=== PATIENT | male | born 1980 | race Caucasian/White ===

== ENCOUNTER 2020-07-07 14:44 | Inpatient (IN) | payer OTHER ==
[2020-07-07 14:55] VITALS: BMI 27.8
[2020-07-07] MEDS ORDERED: SODIUM CHLORIDE 1,000 ML IV STA (15:30)
[2020-07-07] MEDS ORDERED: ALBUTEROL SO4 HFA INHALER IH ONE ×2 (15:30→15:52)
[2020-07-07] MEDS ORDERED: ACETAMINOPHEN 1000 MG/100 ML VIAL (NON FORMULARY) IVPB ONE (15:30)
[2020-07-07] MEDS ORDERED: ACETAMINOPHEN INJECTION 100 ML IVPB ONE (15:53)
[2020-07-07 16:20] LABS: CHLORIDE 95 mmol/L (98-107); POTASSIUM 3.6 mmol/L (3.5-5.1); SODIUM 129 mmol/L (136-145)
[2020-07-07 16:23] LABS: BASO % 0.6 % (0-2.0); HEMATOCRIT 43.8 % (35.4-49); LYMPH % 22.7 % (8-40); MCH 29.8 pg (25.7-33.7); MCHC 34.2 g/dl (32.0-35.9); MEAN CELL VOLUME 87.2 fl (80-96); MEAN PLT VOLUME 8.7 fl (7.5-11.1); MONO % 9.8 % (3.8-10.2); NEUT % 66.9 % (42.8-82.8); PLATELET COUNT 183 K/MM3 (134-434); RBC 5.02 M/mm3 (4.00-5.60); RDW 12.4 % (11.9-15.9); WHITE BLOOD COUNT 3.3 K/mm3 (4.0-10.0)
[2020-07-07 16:24] LABS: ALBUMIN 3.5 g/dl (3.4-5.0); ANION GAP 7 MMOL/L (8-16); BLOOD UREA NITROGEN 8.1 mg/dL (7-18); CO2 27 mmol/L (21-32); GLUCOSE,RANDOM 115 mg/dL (74-106)
[2020-07-07 16:27] LABS: CREATININE 0.9 mg/dL (0.55-1.3); SGOT/AST 37 U/L (15-37); SGPT/ALT 32 U/L (13-61)
[2020-07-07 16:28] LABS: BILIRUBIN,TOTAL 0.4 mg/dL (0.2-1); TOT PROT 7.2 g/dl (6.4-8.2)
[2020-07-07 16:29] LABS: ALK PHOS 46 U/L (45-117)
[2020-07-07 16:30] LABS: LDH 426 U/L (87-246)
[2020-07-07 16:37] LABS: INR 1.17 (0.83-1.09); PROTHROMBIN TIME (PATIENT) 14.3 SEC (9.7-13.0)
[2020-07-07] MEDS ORDERED: DEXAMETHASONE SOD PHOSPHATE 4 MG/1 ML VIAL IVPUSH ONE (17:01)
[2020-07-07] MEDS ORDERED: DEXAMETHASONE SOD PHOSPHATE 10 MG/1 ML VIAL ONE (17:07)
[2020-07-07] MEDS ORDERED: AZITHROMYCIN IVPB 500 MG in DEXTROSE 5%-WATER - 250 ML IVPB ONE (19:22)
[2020-07-07] MEDS ORDERED: CEFTRIAXONE 1,000 MG in DEXTROSE 5%-WATER - 50 ML IVPB ONE (19:22)
[2020-07-07] MEDS ORDERED: CEFTRIAXONE 1 GM/50 ML BAG ONE (19:26)
[2020-07-07] MEDS ORDERED: AZITHROMYCIN IVPB 500 MG/250 ML BAG IVPB ONE (19:26)
[2020-07-08] MEDS ORDERED: PT OWN MED DRAWER 7, Y5N ONE (09:17)
[2020-07-08] MEDS: ZINC SULFATE 220 MG CAPSULE (FP) PO SCH (09:23)
[2020-07-08] MEDS: DEXAMETHASONE SOD PHOSPHATE 4 MG/1 ML VIAL IVPUSH SCH (09:23)
[2020-07-08] MEDS: ASCORBIC ACID 500 MG TABLET (FP) PO SCH (09:23)
[2020-07-08] MEDS: ENOXAPARIN NA (PORCINE) 40 MG/0.4 ML DISP.SYRIN SQ SCH (09:23)
[2020-07-08] MEDS: FAMOTIDINE 20 MG TABLET PO SCH (09:24)
[2020-07-08 09:57] LABS: BASO % 0.2 % (0-2.0); HEMATOCRIT 42.8 % (35.4-49); HEMOGLOBIN 14.9 GM/dL (11.7-16.9); LYMPH % 16.2 % (8-40); MCH 30.2 pg (25.7-33.7); MCHC 34.7 g/dl (32.0-35.9); MEAN PLT VOLUME 8.4 fl (7.5-11.1); MONO % 9.5 % (3.8-10.2); NEUT % 74.1 % (42.8-82.8); PLATELET COUNT 222 K/MM3 (134-434); RBC 4.92 M/mm3 (4.00-5.60); RDW 12.3 % (11.9-15.9); WHITE BLOOD COUNT 4.2 K/mm3 (4.0-10.0)
[2020-07-08] MEDS ORDERED: CEFTRIAXONE 1,000 GM in DEXTROSE 5%-WATER - 50 ML IVPB SCH (10:00)
[2020-07-08 10:32] LABS: POTASSIUM 3.9 mmol/L (3.5-5.1)
[2020-07-08 10:51] LABS: ALBUMIN 3.4 g/dl (3.4-5.0); BLOOD UREA NITROGEN 8.1 mg/dL (7-18); CALCIUM 8.2 mg/dL (8.5-10.1); MAGNESIUM 2.3 mg/dL (1.8-2.4)
[2020-07-08 10:55] LABS: CREATININE 0.9 mg/dL (0.55-1.3); PHOSPHOROUS 2.9 mg/dL (2.5-4.9)
[2020-07-08 10:56] LABS: BILIRUBIN,TOTAL 0.6 mg/dL (0.2-1); TOT PROT 7.3 g/dl (6.4-8.2)
[2020-07-08] MEDS: CHOLECALCIFEROL (VIT D3) 400 UNIT (10 MCG) TABLET PO SCH (11:41)
[2020-07-08] MEDS: AZITHROMYCIN IVPB 250 MG in DEXTROSE 5%-WATER - 250 ML IVPB SCH (11:41)
[2020-07-08] MEDS: CEFTRIAXONE 1 GM in DEXTROSE 5%-WATER - 50 ML IVPB SCH (12:00)
[2020-07-08] MEDS ORDERED: cefTRIAXone SODIUM 1 GM VIAL ONE (12:29)
[2020-07-08] MEDS ORDERED: DEXTROSE 5%-WATER - 50 ML IVPB ONE (12:29)
[2020-07-08] MEDS ORDERED: REMDESIVIR 200 MG in SODIUM CHLORIDE 210 ML IVPB ONE (15:05)
[2020-07-09] MEDS: ACETAMINOPHEN 325 MG TABLET (FP) PO PRN ×2 (00:33→10:09)
[2020-07-09] MEDS ORDERED: guaiFENesin 200 MG/10 ML 10 ML UNIT-DOSE CUPS PO ONE (01:20)
[2020-07-09] MEDS ORDERED: MELATONIN 5 MG TABLETS PO ONE (01:20)
[2020-07-09] MEDS ORDERED: PT OWN MED DRAWER 7, Y5N ONE (09:55)
[2020-07-09] MEDS ORDERED: cefTRIAXone SODIUM 1 GM VIAL ONE (09:55)
[2020-07-09] MEDS ORDERED: DEXTROSE 5%-WATER - 50 ML IVPB ONE (09:55)
[2020-07-09] MEDS: CEFTRIAXONE 1 GM in DEXTROSE 5%-WATER - 50 ML IVPB SCH (09:59)
[2020-07-09] MEDS: AZITHROMYCIN IVPB 250 MG in DEXTROSE 5%-WATER - 250 ML IVPB SCH (09:59)
[2020-07-09] MEDS: ZINC SULFATE 220 MG CAPSULE (FP) PO SCH (10:00)
[2020-07-09] MEDS: ASCORBIC ACID 500 MG TABLET (FP) PO SCH (10:00)
[2020-07-09] MEDS: FAMOTIDINE 20 MG TABLET PO SCH (10:00)
[2020-07-09] MEDS: ENOXAPARIN NA (PORCINE) 40 MG/0.4 ML DISP.SYRIN SQ SCH (10:00)
[2020-07-09] MEDS: CHOLECALCIFEROL (VIT D3) 400 UNIT (10 MCG) TABLET PO SCH (10:00)
[2020-07-09] MEDS: DEXAMETHASONE SOD PHOSPHATE 4 MG/1 ML VIAL IVPUSH SCH (10:01)
[2020-07-09 10:07] LABS: BASO % 0.2 % (0-2.0); HEMATOCRIT 41.2 % (35.4-49); HEMOGLOBIN 14.2 GM/dL (11.7-16.9); LYMPH % 15.6 % (8-40); MCH 30.2 pg (25.7-33.7); MCHC 34.3 g/dl (32.0-35.9); MEAN PLT VOLUME 8.4 fl (7.5-11.1); MONO % 6.5 % (3.8-10.2); NEUT % 77.7 % (42.8-82.8); PLATELET COUNT 248 K/MM3 (134-434); RBC 4.68 M/mm3 (4.00-5.60); RDW 12.7 % (11.9-15.9); WHITE BLOOD COUNT 6.3 K/mm3 (4.0-10.0)
[2020-07-09 10:30] LABS: ALBUMIN 3.1 g/dl (3.4-5.0); CALCIUM 8.1 mg/dL (8.5-10.1)
[2020-07-09 10:31] LABS: BLOOD UREA NITROGEN 10.8 mg/dL (7-18); MAGNESIUM 2.3 mg/dL (1.8-2.4)
[2020-07-09 10:34] LABS: PHOSPHOROUS 3.4 mg/dL (2.5-4.9)
[2020-07-09 10:35] LABS: BILIRUBIN,TOTAL 0.9 mg/dL (0.2-1); TOT PROT 6.9 g/dl (6.4-8.2)
[2020-07-09] MEDS: REMDESIVIR 100 MG in SODIUM CHLORIDE 230 ML IVPB SCH (16:24)
[2020-07-10] MEDS: ACETAMINOPHEN 325 MG TABLET (FP) PO PRN (04:01)
[2020-07-10] MEDS ORDERED: PT OWN MED DRAWER 7, Y5N ONE ×2 (09:13→09:55)
[2020-07-10] MEDS: DEXAMETHASONE SOD PHOSPHATE 4 MG/1 ML VIAL IVPUSH SCH (09:50)
[2020-07-10] MEDS: ZINC SULFATE 220 MG CAPSULE (FP) PO SCH (09:50)
[2020-07-10] MEDS: ASCORBIC ACID 500 MG TABLET (FP) PO SCH (09:50)
[2020-07-10] MEDS: ENOXAPARIN NA (PORCINE) 40 MG/0.4 ML DISP.SYRIN SQ SCH (09:50)
[2020-07-10] MEDS: FAMOTIDINE 20 MG TABLET PO SCH (09:51)
[2020-07-10] MEDS: CHOLECALCIFEROL (VIT D3) 400 UNIT (10 MCG) TABLET PO SCH (09:57)
[2020-07-10 10:09] LABS: BASO % 0.1 % (0-2.0); HEMATOCRIT 40.4 % (35.4-49); HEMOGLOBIN 13.9 GM/dL (11.7-16.9); LYMPH % 11.4 % (8-40); MCH 29.9 pg (25.7-33.7); MCHC 34.4 g/dl (32.0-35.9); MEAN CELL VOLUME 87.1 fl (80-96); MEAN PLT VOLUME 7.9 fl (7.5-11.1); MONO % 6.8 % (3.8-10.2); NEUT % 81.7 % (42.8-82.8); PLATELET COUNT 292 K/MM3 (134-434); RBC 4.64 M/mm3 (4.00-5.60); WHITE BLOOD COUNT 6.4 K/mm3 (4.0-10.0)
[2020-07-10 10:24] LABS: POTASSIUM 3.7 mmol/L (3.5-5.1)
[2020-07-10 10:28] LABS: BLOOD UREA NITROGEN 12.2 mg/dL (7-18); MAGNESIUM 2.4 mg/dL (1.8-2.4)
[2020-07-10 10:31] LABS: CREATININE 0.7 mg/dL (0.55-1.3)
[2020-07-10 10:32] LABS: BILIRUBIN,TOTAL 0.5 mg/dL (0.2-1)
[2020-07-10 10:33] LABS: TOT PROT 6.6 g/dl (6.4-8.2)
[2020-07-10] MEDS: REMDESIVIR 100 MG in SODIUM CHLORIDE 230 ML IVPB SCH (15:34)
[2020-07-11 08:23] LABS: BASO % 0.1 % (0-2.0); HEMATOCRIT 41.1 % (35.4-49); LYMPH % 12.6 % (8-40); MCHC 34.1 g/dl (32.0-35.9); MEAN CELL VOLUME 87.8 fl (80-96); MEAN PLT VOLUME 8.6 fl (7.5-11.1); NEUT % 74.3 % (42.8-82.8); PLATELET COUNT 333 K/MM3 (134-434); RBC 4.68 M/mm3 (4.00-5.60); RDW 12.7 % (11.9-15.9); WHITE BLOOD COUNT 6.6 K/mm3 (4.0-10.0)
[2020-07-11 08:26] LABS: POTASSIUM 4.2 mmol/L (3.5-5.1)
[2020-07-11 08:37] LABS: BLOOD UREA NITROGEN 12.1 mg/dL (7-18); CALCIUM 8.2 mg/dL (8.5-10.1); MAGNESIUM 2.4 mg/dL (1.8-2.4)
[2020-07-11 08:39] LABS: CREATININE 0.7 mg/dL (0.55-1.3)
[2020-07-11 08:40] LABS: PHOSPHOROUS 3.4 mg/dL (2.5-4.9)
[2020-07-11 08:41] LABS: BILIRUBIN,TOTAL 0.6 mg/dL (0.2-1); TOT PROT 6.7 g/dl (6.4-8.2)
[2020-07-11] MEDS: ASCORBIC ACID 500 MG TABLET (FP) PO SCH (10:53)
[2020-07-11] MEDS: ENOXAPARIN NA (PORCINE) 40 MG/0.4 ML DISP.SYRIN SQ SCH (10:53)
[2020-07-11] MEDS: ZINC SULFATE 220 MG CAPSULE (FP) PO SCH (10:53)
[2020-07-11] MEDS: FAMOTIDINE 20 MG TABLET PO SCH (10:53)
[2020-07-11] MEDS: DEXAMETHASONE SOD PHOSPHATE 4 MG/1 ML VIAL IVPUSH SCH (10:53)
[2020-07-11] MEDS: CHOLECALCIFEROL (VIT D3) 400 UNIT (10 MCG) TABLET PO SCH (10:54)
[2020-07-11] MEDS ORDERED: TOCILIZUMAB (ACTEMRA) 200 MG/10 ML VIAL IVPB ONE (11:15)
[2020-07-11] MEDS ORDERED: SODIUM CHLORIDE IVPB ONE (13:00)
[2020-07-11] MEDS ORDERED: TOCILIZUMAB IVPB ONE (13:00)
[2020-07-11] MEDS ORDERED: PT OWN MED DRAWER 7, Y5N ONE (15:31)
[2020-07-11] MEDS: REMDESIVIR 100 MG in SODIUM CHLORIDE 230 ML IVPB SCH (17:12)
[2020-07-12] MEDS ORDERED: ACETAMINOPHEN 325 MG TABLET (FP) PO PRN (08:18)
[2020-07-12 08:24] LABS: BASO % 0.1 % (0-2.0); EOS % 0.2 % (0-4.5); HEMATOCRIT 42.3 % (35.4-49); HEMOGLOBIN 14.3 GM/dL (11.7-16.9); LYMPH % 18.4 % (8-40); MCH 29.7 pg (25.7-33.7); MCHC 33.7 g/dl (32.0-35.9); MEAN CELL VOLUME 88.2 fl (80-96); MEAN PLT VOLUME 8.4 fl (7.5-11.1); MONO % 19.2 % (3.8-10.2); NEUT % 62.1 % (42.8-82.8); PLATELET COUNT 424 K/MM3 (134-434); WHITE BLOOD COUNT 4.2 K/mm3 (4.0-10.0)
[2020-07-12 08:43] LABS: POTASSIUM 4.4 mmol/L (3.5-5.1)
[2020-07-12 08:45] LABS: CALCIUM 7.9 mg/dL (8.5-10.1)
[2020-07-12 08:46] LABS: ALBUMIN 2.8 g/dl (3.4-5.0); BLOOD UREA NITROGEN 13.6 mg/dL (7-18)
[2020-07-12 08:49] LABS: CREATININE 0.7 mg/dL (0.55-1.3)
[2020-07-12 08:50] LABS: BILIRUBIN,TOTAL 0.7 mg/dL (0.2-1); TOT PROT 6.6 g/dl (6.4-8.2)
[2020-07-12] MEDS: ENOXAPARIN NA (PORCINE) 40 MG/0.4 ML DISP.SYRIN SQ SCH (10:42)
[2020-07-12] MEDS: ZINC SULFATE 220 MG CAPSULE (FP) PO SCH (10:43)
[2020-07-12] MEDS: ASCORBIC ACID 500 MG TABLET (FP) PO SCH ×2 (10:43→21:26)
[2020-07-12] MEDS: FAMOTIDINE 20 MG TABLET PO SCH (10:43)
[2020-07-12] MEDS: DEXAMETHASONE SOD PHOSPHATE 4 MG/1 ML VIAL IVPUSH SCH (10:43)
[2020-07-12] MEDS: CHOLECALCIFEROL (VIT D3) 400 UNIT (10 MCG) TABLET PO SCH (10:43)
[2020-07-12] MEDS ORDERED: REMDESIVIR 100 MG in SODIUM CHLORIDE 230 ML IVPB SCH (16:00)
[2020-07-13 07:49] LABS: BASO % 0.1 % (0-2.0); EOS % 0.9 % (0-4.5); HEMATOCRIT 42.4 % (35.4-49); HEMOGLOBIN 14.6 GM/dL (11.7-16.9); LYMPH % 20.9 % (8-40); MCH 30.3 pg (25.7-33.7); MCHC 34.5 g/dl (32.0-35.9); MEAN CELL VOLUME 87.9 fl (80-96); MEAN PLT VOLUME 8.2 fl (7.5-11.1); MONO % 14.1 % (3.8-10.2); PLATELET COUNT 483 K/MM3 (134-434); RBC 4.82 M/mm3 (4.00-5.60); WHITE BLOOD COUNT 4.8 K/mm3 (4.0-10.0)
[2020-07-13 08:11] LABS: POTASSIUM 4.3 mmol/L (3.5-5.1)
[2020-07-13 08:13] LABS: ALBUMIN 2.9 g/dl (3.4-5.0); BLOOD UREA NITROGEN 15.3 mg/dL (7-18); CALCIUM 8.3 mg/dL (8.5-10.1)
[2020-07-13 08:14] LABS: MAGNESIUM 2.5 mg/dL (1.8-2.4)
[2020-07-13 08:16] LABS: CREATININE 0.8 mg/dL (0.55-1.3)
[2020-07-13 08:17] LABS: PHOSPHOROUS 4.3 mg/dL (2.5-4.9)
[2020-07-13 08:18] LABS: BILIRUBIN,TOTAL 0.6 mg/dL (0.2-1); TOT PROT 6.6 g/dl (6.4-8.2)
[2020-07-13] MEDS: DEXAMETHASONE SOD PHOSPHATE 4 MG/1 ML VIAL IVPUSH SCH (10:17)
[2020-07-13] MEDS: ENOXAPARIN NA (PORCINE) 40 MG/0.4 ML DISP.SYRIN SQ SCH (10:18)
[2020-07-13] MEDS: ZINC SULFATE 220 MG CAPSULE (FP) PO SCH (10:18)
[2020-07-13] MEDS: ASCORBIC ACID 500 MG TABLET (FP) PO SCH ×2 (10:19→21:50)
[2020-07-13] MEDS: FAMOTIDINE 20 MG TABLET PO SCH (10:19)
[2020-07-13] MEDS: CHOLECALCIFEROL (VIT D3) 400 UNIT (10 MCG) TABLET PO SCH (10:19)
[2020-07-13] MEDS: ENOXAPARIN NA (PORCINE) 80 MG/0.8 ML DISP.SYRIN SQ SCH (21:50)
[2020-07-14 07:12] LABS: BASO % 0.3 % (0-2.0); EOS % 3.4 % (0-4.5); HEMATOCRIT 44.3 % (35.4-49); HEMOGLOBIN 15.1 GM/dL (11.7-16.9); LYMPH % 29.8 % (8-40); MEAN CELL VOLUME 88.1 fl (80-96); MEAN PLT VOLUME 8.3 fl (7.5-11.1); MONO % 7.9 % (3.8-10.2); NEUT % 58.6 % (42.8-82.8); PLATELET COUNT 487 K/MM3 (134-434); RBC 5.02 M/mm3 (4.00-5.60); WHITE BLOOD COUNT 5.4 K/mm3 (4.0-10.0)
[2020-07-14] MEDS: ENOXAPARIN NA (PORCINE) 80 MG/0.8 ML DISP.SYRIN SQ SCH ×2 (09:57→21:00)
[2020-07-14] MEDS: CHOLECALCIFEROL (VIT D3) 400 UNIT (10 MCG) TABLET PO SCH (09:58)
[2020-07-14] MEDS: ZINC SULFATE 220 MG CAPSULE (FP) PO SCH (09:58)
[2020-07-14] MEDS: FAMOTIDINE 20 MG TABLET PO SCH (09:59)
[2020-07-14] MEDS: DEXAMETHASONE SOD PHOSPHATE 4 MG/1 ML VIAL IVPUSH SCH (09:59)
[2020-07-14] MEDS: ASCORBIC ACID 500 MG TABLET (FP) PO SCH ×2 (09:59→21:00)
[2020-07-14 11:50] LABS: POTASSIUM 4.1 mmol/L (3.5-5.1)
[2020-07-14] MEDS: ALBUTEROL SO4 2.5/IPRATROPIUM 0.5 INH SOL 3 ML VIAL.NEB. NEB PRN ×2 (11:50→16:51)
[2020-07-14 11:52] LABS: CALCIUM 8.4 mg/dL (8.5-10.1)
[2020-07-14 11:53] LABS: ALBUMIN 2.9 g/dl (3.4-5.0); MAGNESIUM 2.7 mg/dL (1.8-2.4)
[2020-07-14 11:56] LABS: CREATININE 0.8 mg/dL (0.55-1.3); PHOSPHOROUS 3.2 mg/dL (2.5-4.9)
[2020-07-14 11:57] LABS: BILIRUBIN,TOTAL 1.1 mg/dL (0.2-1)
[2020-07-14 11:58] LABS: TOT PROT 6.4 g/dl (6.4-8.2)
[2020-07-14] MEDS ORDERED: BUDESONIDE 0.5 MG/2 ML INH SUSP VIAL NEB ONE (12:27)
[2020-07-14] MEDS: BUDESONIDE 0.5 MG/2 ML INH SUSP VIAL NEB SCH (20:42)
[2020-07-14] MEDS ORDERED: PT OWN MED DRAWER 7, Y5N ONE (22:16)
[2020-07-15] MEDS: BUDESONIDE 0.5 MG/2 ML INH SUSP VIAL NEB SCH ×2 (07:25→20:35)
[2020-07-15 07:33] LABS: BASO % 0.3 % (0-2.0); EOS % 4.2 % (0-4.5); HEMATOCRIT 43.7 % (35.4-49); HEMOGLOBIN 15.2 GM/dL (11.7-16.9); MCH 30.4 pg (25.7-33.7); MCHC 34.7 g/dl (32.0-35.9); MEAN CELL VOLUME 87.5 fl (80-96); MONO % 6.3 % (3.8-10.2); NEUT % 60.2 % (42.8-82.8); PLATELET COUNT 506 K/MM3 (134-434); RDW 12.7 % (11.9-15.9); WHITE BLOOD COUNT 6.7 K/mm3 (4.0-10.0)
[2020-07-15 07:51] LABS: POTASSIUM 4.5 mmol/L (3.5-5.1)
[2020-07-15 07:57] LABS: BLOOD UREA NITROGEN 13.8 mg/dL (7-18); CALCIUM 8.1 mg/dL (8.5-10.1)
[2020-07-15 07:58] LABS: MAGNESIUM 2.4 mg/dL (1.8-2.4)
[2020-07-15 08:00] LABS: CREATININE 0.8 mg/dL (0.55-1.3)
[2020-07-15 08:01] LABS: BILIRUBIN,TOTAL 0.8 mg/dL (0.2-1); PHOSPHOROUS 3.3 mg/dL (2.5-4.9); TOT PROT 6.6 g/dl (6.4-8.2)
[2020-07-15] MEDS: ASCORBIC ACID 500 MG TABLET (FP) PO SCH ×2 (09:09→21:34)
[2020-07-15] MEDS: ZINC SULFATE 220 MG CAPSULE (FP) PO SCH (09:09)
[2020-07-15] MEDS: DEXAMETHASONE SOD PHOSPHATE 4 MG/1 ML VIAL IVPUSH SCH (09:09)
[2020-07-15] MEDS: CHOLECALCIFEROL (VIT D3) 400 UNIT (10 MCG) TABLET PO SCH (09:09)
[2020-07-15] MEDS: ENOXAPARIN NA (PORCINE) 80 MG/0.8 ML DISP.SYRIN SQ SCH ×2 (09:09→21:34)
[2020-07-15] MEDS: FAMOTIDINE 20 MG TABLET PO SCH (09:09)
[2020-07-15] MEDS: ALBUTEROL SO4 2.5/IPRATROPIUM 0.5 INH SOL 3 ML VIAL.NEB. NEB PRN (20:45)
[2020-07-16] MEDS ORDERED: PT OWN MED DRAWER 7, Y5N ONE ×2 (07:40→20:03)
[2020-07-16] MEDS: BUDESONIDE 0.5 MG/2 ML INH SUSP VIAL NEB SCH ×2 (07:55→20:22)
[2020-07-16 08:04] LABS: BASO % 0.4 % (0-2.0); EOS % 3.3 % (0-4.5); HEMATOCRIT 44.9 % (35.4-49); HEMOGLOBIN 15.3 GM/dL (11.7-16.9); LYMPH % 29.2 % (8-40); MCH 30.1 pg (25.7-33.7); MEAN CELL VOLUME 88.4 fl (80-96); MONO % 5.2 % (3.8-10.2); NEUT % 61.9 % (42.8-82.8); PLATELET COUNT 525 K/MM3 (134-434); RBC 5.08 M/mm3 (4.00-5.60); RDW 12.9 % (11.9-15.9); WHITE BLOOD COUNT 6.2 K/mm3 (4.0-10.0)
[2020-07-16 08:40] LABS: POTASSIUM 4.7 mmol/L (3.5-5.1)
[2020-07-16 08:42] LABS: ALBUMIN 3.1 g/dl (3.4-5.0); BLOOD UREA NITROGEN 16.8 mg/dL (7-18); CALCIUM 8.5 mg/dL (8.5-10.1)
[2020-07-16 08:44] LABS: MAGNESIUM 2.5 mg/dL (1.8-2.4)
[2020-07-16 08:45] LABS: CREATININE 0.9 mg/dL (0.55-1.3)
[2020-07-16 08:46] LABS: TOT PROT 6.8 g/dl (6.4-8.2)
[2020-07-16 08:48] LABS: PHOSPHOROUS 3.5 mg/dL (2.5-4.9)
[2020-07-16] MEDS: ENOXAPARIN NA (PORCINE) 80 MG/0.8 ML DISP.SYRIN SQ SCH ×2 (09:19→21:03)
[2020-07-16] MEDS: CHOLECALCIFEROL (VIT D3) 400 UNIT (10 MCG) TABLET PO SCH (09:20)
[2020-07-16] MEDS: DEXAMETHASONE SOD PHOSPHATE 4 MG/1 ML VIAL IVPUSH SCH (09:20)
[2020-07-16] MEDS: ASCORBIC ACID 500 MG TABLET (FP) PO SCH ×2 (09:20→21:03)
[2020-07-16] MEDS: FAMOTIDINE 20 MG TABLET PO SCH (09:20)
[2020-07-16] MEDS: ZINC SULFATE 220 MG CAPSULE (FP) PO SCH (09:20)
[2020-07-16] MEDS: ALBUTEROL SO4 2.5/IPRATROPIUM 0.5 INH SOL 3 ML VIAL.NEB. NEB PRN ×2 (11:18→16:35)
[2020-07-17] MEDS: BUDESONIDE 0.5 MG/2 ML INH SUSP VIAL NEB SCH ×2 (07:35→20:06)
[2020-07-17 07:47] LABS: BASO % 0.6 % (0-2.0); HEMATOCRIT 46.1 % (35.4-49); HEMOGLOBIN 15.9 GM/dL (11.7-16.9); LYMPH % 30.6 % (8-40); MCH 30.5 pg (25.7-33.7); MCHC 34.6 g/dl (32.0-35.9); MEAN PLT VOLUME 7.9 fl (7.5-11.1); MONO % 6.4 % (3.8-10.2); NEUT % 60.4 % (42.8-82.8); PLATELET COUNT 564 K/MM3 (134-434); RBC 5.23 M/mm3 (4.00-5.60); RDW 12.8 % (11.9-15.9)
[2020-07-17 08:12] LABS: POTASSIUM 4.5 mmol/L (3.5-5.1)
[2020-07-17 08:21] LABS: ALBUMIN 3.4 g/dl (3.4-5.0); BLOOD UREA NITROGEN 16.2 mg/dL (7-18)
[2020-07-17 08:23] LABS: MAGNESIUM 2.5 mg/dL (1.8-2.4)
[2020-07-17 08:25] LABS: PHOSPHOROUS 3.2 mg/dL (2.5-4.9)
[2020-07-17 08:26] LABS: BILIRUBIN,TOTAL 1.3 mg/dL (0.2-1); TOT PROT 7.3 g/dl (6.4-8.2)
[2020-07-17] MEDS: ENOXAPARIN NA (PORCINE) 80 MG/0.8 ML DISP.SYRIN SQ SCH ×2 (10:51→22:37)
[2020-07-17] MEDS: ZINC SULFATE 220 MG CAPSULE (FP) PO SCH (10:51)
[2020-07-17] MEDS: DEXAMETHASONE SOD PHOSPHATE 4 MG/1 ML VIAL IVPUSH SCH (10:51)
[2020-07-17] MEDS: ASCORBIC ACID 500 MG TABLET (FP) PO SCH ×2 (10:51→22:37)
[2020-07-17] MEDS: FAMOTIDINE 20 MG TABLET PO SCH (10:51)
[2020-07-17] MEDS: CHOLECALCIFEROL (VIT D3) 400 UNIT (10 MCG) TABLET PO SCH (10:51)
[2020-07-17] MEDS: ALBUTEROL SO4 2.5/IPRATROPIUM 0.5 INH SOL 3 ML VIAL.NEB. NEB SCH ×2 (15:18→20:06)
[2020-07-18 02:48] LABS: CHLORIDE 103 mmol/L (98-107); POTASSIUM 4.6 mmol/L (3.5-5.1); SODIUM 137 mmol/L (136-145)
[2020-07-18 02:50] LABS: ANION GAP 10 MMOL/L (8-16); CALCIUM 8.3 mg/dL (8.5-10.1); CO2 24 mmol/L (21-32)
[2020-07-18 02:51] LABS: BLOOD UREA NITROGEN 15.1 mg/dL (7-18); GLUCOSE,RANDOM 97 mg/dL (74-106); MAGNESIUM 2.4 mg/dL (1.8-2.4)
[2020-07-18 02:54] LABS: CREATININE 0.8 mg/dL (0.55-1.3)
[2020-07-18] MEDS: ALBUTEROL SO4 2.5/IPRATROPIUM 0.5 INH SOL 3 ML VIAL.NEB. NEB SCH ×4 (08:11→20:08)
[2020-07-18] MEDS: BUDESONIDE 0.5 MG/2 ML INH SUSP VIAL NEB SCH ×2 (08:11→20:10)
[2020-07-18] MEDS: ENOXAPARIN NA (PORCINE) 80 MG/0.8 ML DISP.SYRIN SQ SCH ×2 (10:22→22:26)
[2020-07-18] MEDS: DEXAMETHASONE SOD PHOSPHATE 4 MG/1 ML VIAL IVPUSH SCH (10:22)
[2020-07-18] MEDS: ZINC SULFATE 220 MG CAPSULE (FP) PO SCH (10:23)
[2020-07-18] MEDS: FAMOTIDINE 20 MG TABLET PO SCH (10:23)
[2020-07-18] MEDS: ASCORBIC ACID 500 MG TABLET (FP) PO SCH ×2 (10:23→22:26)
[2020-07-18] MEDS: CHOLECALCIFEROL (VIT D3) 400 UNIT (10 MCG) TABLET PO SCH (10:23)
[2020-07-18] MEDS ORDERED: PT OWN MED DRAWER 7, Y5N ONE (20:46)
[2020-07-19 07:30] LABS: BASO % 0.8 % (0-2.0); EOS % 0.9 % (0-4.5); LYMPH % 29.4 % (8-40); MCHC 34.1 g/dl (32.0-35.9); MEAN CELL VOLUME 87.8 fl (80-96); MONO % 6.4 % (3.8-10.2); NEUT % 62.5 % (42.8-82.8); PLATELET COUNT 433 K/MM3 (134-434); RBC 5.01 M/mm3 (4.00-5.60); RDW 12.7 % (11.9-15.9); WHITE BLOOD COUNT 8.6 K/mm3 (4.0-10.0)
[2020-07-19] MEDS ORDERED: PT OWN MED DRAWER 7, Y5N ONE (07:39)
[2020-07-19] MEDS: ALBUTEROL SO4 2.5/IPRATROPIUM 0.5 INH SOL 3 ML VIAL.NEB. NEB SCH ×4 (07:45→20:40)
[2020-07-19] MEDS: BUDESONIDE 0.5 MG/2 ML INH SUSP VIAL NEB SCH ×2 (07:45→20:40)
[2020-07-19 08:03] LABS: POTASSIUM 4.1 mmol/L (3.5-5.1)
[2020-07-19 08:15] LABS: BLOOD UREA NITROGEN 14.3 mg/dL (7-18); CALCIUM 8.6 mg/dL (8.5-10.1); MAGNESIUM 2.5 mg/dL (1.8-2.4)
[2020-07-19 08:17] LABS: PHOSPHOROUS 3.8 mg/dL (2.5-4.9)
[2020-07-19 08:19] LABS: BILIRUBIN,TOTAL 1.1 mg/dL (0.2-1); TOT PROT 6.6 g/dl (6.4-8.2)
[2020-07-19 08:24] LABS: CREATININE 0.8 mg/dL (0.55-1.3)
[2020-07-19] MEDS: CHOLECALCIFEROL (VIT D3) 400 UNIT (10 MCG) TABLET PO SCH (09:21)
[2020-07-19] MEDS: DEXAMETHASONE SOD PHOSPHATE 4 MG/1 ML VIAL IVPUSH SCH (09:21)
[2020-07-19] MEDS: ZINC SULFATE 220 MG CAPSULE (FP) PO SCH (09:21)
[2020-07-19] MEDS: ASCORBIC ACID 500 MG TABLET (FP) PO SCH ×2 (09:21→21:22)
[2020-07-19] MEDS: FAMOTIDINE 20 MG TABLET PO SCH (09:21)
[2020-07-19] MEDS: ENOXAPARIN NA (PORCINE) 80 MG/0.8 ML DISP.SYRIN SQ SCH ×2 (09:21→21:22)
[2020-07-20 07:32] LABS: BASO % 0.8 % (0-2.0); HEMATOCRIT 42.5 % (35.4-49); HEMOGLOBIN 14.4 GM/dL (11.7-16.9); LYMPH % 29.6 % (8-40); MCH 29.9 pg (25.7-33.7); MCHC 33.8 g/dl (32.0-35.9); MEAN CELL VOLUME 88.5 fl (80-96); MEAN PLT VOLUME 8.2 fl (7.5-11.1); MONO % 5.5 % (3.8-10.2); NEUT % 63.1 % (42.8-82.8); PLATELET COUNT 408 K/MM3 (134-434); RDW 12.8 % (11.9-15.9); WHITE BLOOD COUNT 9.3 K/mm3 (4.0-10.0)
[2020-07-20 08:05] LABS: CHLORIDE 103 mmol/L (98-107); POTASSIUM 4.2 mmol/L (3.5-5.1); SODIUM 136 mmol/L (136-145)
[2020-07-20 08:14] LABS: LDH 593 U/L (87-246)
[2020-07-20] MEDS: BUDESONIDE 0.5 MG/2 ML INH SUSP VIAL NEB SCH ×2 (08:49→20:47)
[2020-07-20] MEDS: ALBUTEROL SO4 2.5/IPRATROPIUM 0.5 INH SOL 3 ML VIAL.NEB. NEB SCH ×4 (08:50→20:47)
[2020-07-20 08:54] LABS: CALCIUM 8.6 mg/dL (8.5-10.1)
[2020-07-20 08:55] LABS: ANION GAP 8 MMOL/L (8-16); BLOOD UREA NITROGEN 13.7 mg/dL (7-18); CO2 25 mmol/L (21-32); GLUCOSE,RANDOM 74 mg/dL (74-106); MAGNESIUM 2.3 mg/dL (1.8-2.4)
[2020-07-20 08:57] LABS: SGOT/AST 62 U/L (15-37); SGPT/ALT 185 U/L (13-61)
[2020-07-20 08:58] LABS: CREATININE 0.8 mg/dL (0.55-1.3); PHOSPHOROUS 3.9 mg/dL (2.5-4.9)
[2020-07-20 08:59] LABS: TOT PROT 6.5 g/dl (6.4-8.2)
[2020-07-20 09:00] LABS: ALK PHOS 47 U/L (45-117)
[2020-07-20] MEDS: ASCORBIC ACID 500 MG TABLET (FP) PO SCH ×2 (09:21→21:36)
[2020-07-20] MEDS: ENOXAPARIN NA (PORCINE) 80 MG/0.8 ML DISP.SYRIN SQ SCH ×2 (09:21→21:36)
[2020-07-20] MEDS: ZINC SULFATE 220 MG CAPSULE (FP) PO SCH (09:21)
[2020-07-20] MEDS: CHOLECALCIFEROL (VIT D3) 400 UNIT (10 MCG) TABLET PO SCH (09:21)
[2020-07-20] MEDS: DEXAMETHASONE SOD PHOSPHATE 4 MG/1 ML VIAL IVPUSH SCH (09:21)
[2020-07-20] MEDS: FAMOTIDINE 20 MG TABLET PO SCH (09:21)
[2020-07-20 12:05] LABS: ANISOCYTOSIS 0; MACROCYTOSIS 0; PLATELET ESTIMATE NORMAL
[2020-07-21] MEDS ORDERED: IPRATROPIUM BR 0.02% 0.5 MG/2.5 ML VIAL.NEB. NEB ONE (05:39)
[2020-07-21] MEDS ORDERED: LEVALBUTEROL HCL 0.63 MG/3 ML VIAL.NEB. IH ONE (05:39)
[2020-07-21] MEDS: ALBUTEROL SO4 2.5/IPRATROPIUM 0.5 INH SOL 3 ML VIAL.NEB. NEB SCH ×5 (06:20→21:18)
[2020-07-21] MEDS: BUDESONIDE 0.5 MG/2 ML INH SUSP VIAL NEB SCH ×3 (06:20→21:18)
[2020-07-21] MEDS: DEXAMETHASONE SOD PHOSPHATE 4 MG/1 ML VIAL IVPUSH SCH (09:50)
[2020-07-21] MEDS: ENOXAPARIN NA (PORCINE) 80 MG/0.8 ML DISP.SYRIN SQ SCH (09:51)
[2020-07-21] MEDS: ZINC SULFATE 220 MG CAPSULE (FP) PO SCH (09:51)
[2020-07-21] MEDS: FAMOTIDINE 20 MG TABLET PO SCH (09:51)
[2020-07-21] MEDS: CHOLECALCIFEROL (VIT D3) 400 UNIT (10 MCG) TABLET PO SCH (09:51)
[2020-07-21] MEDS: ASCORBIC ACID 500 MG TABLET (FP) PO SCH ×2 (09:51→22:45)
[2020-07-21] MEDS ORDERED: ACETAMINOPHEN 325 MG TABLET (FP) PO PRN (15:19)
[2020-07-21] MEDS ORDERED: ENOXAPARIN NA (PORCINE) 80 MG/0.8 ML DISP.SYRIN SQ SCH (22:00)
[2020-07-22] MEDS: ALBUTEROL SO4 2.5/IPRATROPIUM 0.5 INH SOL 3 ML VIAL.NEB. NEB SCH ×4 (07:40→21:07)
[2020-07-22] MEDS: BUDESONIDE 0.5 MG/2 ML INH SUSP VIAL NEB SCH ×2 (07:40→21:07)
[2020-07-22 09:36] LABS: BASO % 0.6 % (0-2.0); EOS % 1.1 % (0-4.5); HEMATOCRIT 42.7 % (35.4-49); HEMOGLOBIN 14.8 GM/dL (11.7-16.9); LYMPH % 29.6 % (8-40); MCH 30.5 pg (25.7-33.7); MCHC 34.6 g/dl (32.0-35.9); MEAN CELL VOLUME 88.4 fl (80-96); MEAN PLT VOLUME 8.2 fl (7.5-11.1); MONO % 5.4 % (3.8-10.2); NEUT % 63.3 % (42.8-82.8); PLATELET COUNT 388 K/MM3 (134-434); RBC 4.83 M/mm3 (4.00-5.60); RDW 13.2 % (11.9-15.9); WHITE BLOOD COUNT 10.4 K/mm3 (4.0-10.0)
[2020-07-22 09:43] LABS: CHLORIDE 102 mmol/L (98-107); POTASSIUM 4.1 mmol/L (3.5-5.1); SODIUM 137 mmol/L (136-145)
[2020-07-22 10:11] LABS: CALCIUM 8.7 mg/dL (8.5-10.1)
[2020-07-22 10:12] LABS: ALBUMIN 3.3 g/dl (3.4-5.0); ANION GAP 8 MMOL/L (8-16); BLOOD UREA NITROGEN 12.8 mg/dL (7-18); CO2 27 mmol/L (21-32); GLUCOSE,RANDOM 74 mg/dL (74-106); MAGNESIUM 2.3 mg/dL (1.8-2.4)
[2020-07-22 10:14] LABS: CREATININE 0.8 mg/dL (0.55-1.3); TOT PROT 6.7 g/dl (6.4-8.2)
[2020-07-22 10:15] LABS: PHOSPHOROUS 4.5 mg/dL (2.5-4.9); SGOT/AST 46 U/L (15-37); SGPT/ALT 177 U/L (13-61)
[2020-07-22 10:16] LABS: BILIRUBIN,TOTAL 0.8 mg/dL (0.2-1)
[2020-07-22 10:17] LABS: ALK PHOS 49 U/L (45-117)
[2020-07-22 10:21] LABS: LDH 506 U/L (87-246)
[2020-07-22] MEDS: DEXAMETHASONE SOD PHOSPHATE 4 MG/1 ML VIAL IVPUSH SCH (10:33)
[2020-07-22] MEDS: APIXABAN 5 MG TABLET PO SCH ×2 (10:34→22:07)
[2020-07-22] MEDS: ASCORBIC ACID 500 MG TABLET (FP) PO SCH ×2 (10:34→22:07)
[2020-07-22] MEDS: FAMOTIDINE 20 MG TABLET PO SCH (10:34)
[2020-07-22] MEDS: CHOLECALCIFEROL (VIT D3) 400 UNIT (10 MCG) TABLET PO SCH (10:34)
[2020-07-22] MEDS: ZINC SULFATE 220 MG CAPSULE (FP) PO SCH (10:34)
[2020-07-23] MEDS ORDERED: SODIUM CHLORIDE NASAL SPRAY 44 ML BOTTLE NS ONE (05:55)
[2020-07-23] MEDS: ALBUTEROL SO4 2.5/IPRATROPIUM 0.5 INH SOL 3 ML VIAL.NEB. NEB SCH ×4 (08:15→21:16)
[2020-07-23] MEDS: BUDESONIDE 0.5 MG/2 ML INH SUSP VIAL NEB SCH ×2 (08:15→21:10)
[2020-07-23] MEDS: APIXABAN 5 MG TABLET PO SCH ×2 (10:30→22:08)
[2020-07-23] MEDS: DEXAMETHASONE SOD PHOSPHATE 4 MG/1 ML VIAL IVPUSH SCH (10:30)
[2020-07-23] MEDS: CHOLECALCIFEROL (VIT D3) 400 UNIT (10 MCG) TABLET PO SCH (10:30)
[2020-07-23] MEDS: ZINC SULFATE 220 MG CAPSULE (FP) PO SCH (10:30)
[2020-07-23] MEDS: FAMOTIDINE 20 MG TABLET PO SCH (10:30)
[2020-07-23] MEDS: ASCORBIC ACID 500 MG TABLET (FP) PO SCH ×2 (10:30→22:08)
[2020-07-23] MEDS ORDERED: FUROSEMIDE 40 MG/4 ML INJECTABLE VIAL IVPUSH ONE (10:59)
[2020-07-23] MEDS ORDERED: PIPERACILLIN/TAZOB 4.5 GM 4.5 GM in DEXTROSE 5%-WATER 100 ML IVPB SCH ×2 (11:30→12:45)
[2020-07-23 12:49] LABS: LDH 430 U/L (87-246)
[2020-07-23] MEDS ORDERED: cefTRIAXone SODIUM 1 GM VIAL ONE (14:23)
[2020-07-23] MEDS ORDERED: DEXTROSE 5%-WATER - 50 ML IVPB ONE (14:24)
[2020-07-23] MEDS ORDERED: PIPERACILLIN/TAZOBACTAM 4.5 GM VIAL IVPB ONE (14:24)
[2020-07-23] MEDS: CEFTRIAXONE 1 GM in DEXTROSE 5%-WATER - 50 ML IVPB SCH (14:31)
[2020-07-23] MEDS ORDERED: PT OWN MED DRAWER 7, Y5N ONE (21:59)
[2020-07-24] MEDS: ALBUTEROL SO4 2.5/IPRATROPIUM 0.5 INH SOL 3 ML VIAL.NEB. NEB SCH ×4 (07:35→19:45)
[2020-07-24] MEDS: BUDESONIDE 0.5 MG/2 ML INH SUSP VIAL NEB SCH ×2 (07:35→19:45)
[2020-07-24 08:20] LABS: HEMATOCRIT 43.4 % (35.4-49); HEMOGLOBIN 14.9 GM/dL (11.7-16.9); MCH 30.3 pg (25.7-33.7); MCHC 34.4 g/dl (32.0-35.9); MEAN CELL VOLUME 88.1 fl (80-96); PLATELET COUNT 314 K/MM3 (134-434); RBC 4.93 M/mm3 (4.00-5.60); RDW 13.8 % (11.9-15.9); WHITE BLOOD COUNT 9.4 K/mm3 (4.0-10.0)
[2020-07-24 08:38] LABS: CHLORIDE 102 mmol/L (98-107); POTASSIUM 4.3 mmol/L (3.5-5.1); SODIUM 139 mmol/L (136-145)
[2020-07-24 08:43] LABS: ALBUMIN 3.2 g/dl (3.4-5.0); ANION GAP 9 MMOL/L (8-16); BLOOD UREA NITROGEN 16.9 mg/dL (7-18); CALCIUM 8.9 mg/dL (8.5-10.1); CO2 28 mmol/L (21-32); GLUCOSE,RANDOM 74 mg/dL (74-106); MAGNESIUM 2.5 mg/dL (1.8-2.4)
[2020-07-24 08:46] LABS: CREATININE 0.9 mg/dL (0.55-1.3); SGOT/AST 31 U/L (15-37); SGPT/ALT 153 U/L (13-61)
[2020-07-24 08:48] LABS: BILIRUBIN,TOTAL 0.8 mg/dL (0.2-1); LDH 400 U/L (87-246); TOT PROT 6.7 g/dl (6.4-8.2)
[2020-07-24 08:49] LABS: ALK PHOS 50 U/L (45-117)
[2020-07-24] MEDS ORDERED: DEXTROSE 5%-WATER - 50 ML IVPB ONE (09:53)
[2020-07-24] MEDS ORDERED: cefTRIAXone SODIUM 1 GM VIAL ONE (09:53)
[2020-07-24] MEDS ORDERED: FUROSEMIDE 40 MG/4 ML INJECTABLE VIAL IVPUSH ONE (10:00)
[2020-07-24] MEDS ORDERED: INSULIN (NOVOLOG) ASPART 100 UNITS/ML 10ML VIAL ONE (10:55)
[2020-07-24] MEDS: CHOLECALCIFEROL (VIT D3) 400 UNIT (10 MCG) TABLET PO SCH (11:19)
[2020-07-24] MEDS: ASCORBIC ACID 500 MG TABLET (FP) PO SCH ×2 (11:19→21:35)
[2020-07-24] MEDS: APIXABAN 5 MG TABLET PO SCH ×2 (11:19→21:36)
[2020-07-24] MEDS: DEXAMETHASONE SOD PHOSPHATE 4 MG/1 ML VIAL IVPUSH SCH (11:19)
[2020-07-24] MEDS: ZINC SULFATE 220 MG CAPSULE (FP) PO SCH (11:19)
[2020-07-24] MEDS: FAMOTIDINE 20 MG TABLET PO SCH (11:20)
[2020-07-24] MEDS: CEFTRIAXONE 1 GM in DEXTROSE 5%-WATER - 50 ML IVPB SCH (11:20)
[2020-07-24] MEDS ORDERED: MELATONIN 5 MG TABLETS PO ONE (21:50)
[2020-07-25] MEDS: ALBUTEROL SO4 2.5/IPRATROPIUM 0.5 INH SOL 3 ML VIAL.NEB. NEB SCH ×4 (07:50→21:05)
[2020-07-25] MEDS: BUDESONIDE 0.5 MG/2 ML INH SUSP VIAL NEB SCH ×2 (07:51→21:11)
[2020-07-25] MEDS ORDERED: cefTRIAXone SODIUM 1 GM VIAL ONE (09:34)
[2020-07-25] MEDS ORDERED: DEXTROSE 5%-WATER - 50 ML IVPB ONE (09:34)
[2020-07-25] MEDS: CHOLECALCIFEROL (VIT D3) 400 UNIT (10 MCG) TABLET PO SCH (09:49)
[2020-07-25] MEDS: APIXABAN 5 MG TABLET PO SCH ×2 (09:49→22:06)
[2020-07-25] MEDS: ASCORBIC ACID 500 MG TABLET (FP) PO SCH ×2 (09:49→22:06)
[2020-07-25] MEDS: ZINC SULFATE 220 MG CAPSULE (FP) PO SCH (09:49)
[2020-07-25] MEDS: DEXAMETHASONE SOD PHOSPHATE 4 MG/1 ML VIAL IVPUSH SCH (09:54)
[2020-07-25] MEDS: CEFTRIAXONE 1 GM in DEXTROSE 5%-WATER - 50 ML IVPB SCH (09:55)
[2020-07-25] MEDS: FAMOTIDINE 20 MG TABLET PO SCH (09:55)
[2020-07-25] MEDS ORDERED: FUROSEMIDE 40 MG/4 ML INJECTABLE VIAL IVPUSH ONE (10:17)
[2020-07-25] MEDS ORDERED: MELATONIN 5 MG TABLETS PO PRN (22:00)
[2020-07-26] MEDS: BUDESONIDE 0.5 MG/2 ML INH SUSP VIAL NEB SCH ×2 (08:30→19:42)
[2020-07-26] MEDS: ALBUTEROL SO4 2.5/IPRATROPIUM 0.5 INH SOL 3 ML VIAL.NEB. NEB SCH ×2 (08:30→12:40)
[2020-07-26 09:02] LABS: HEMATOCRIT 42.3 % (35.4-49); HEMOGLOBIN 14.4 GM/dL (11.7-16.9); MCH 30.2 pg (25.7-33.7); MCHC 33.9 g/dl (32.0-35.9); MEAN CELL VOLUME 88.9 fl (80-96); MEAN PLT VOLUME 8.3 fl (7.5-11.1); PLATELET COUNT 279 K/MM3 (134-434); RBC 4.76 M/mm3 (4.00-5.60); RDW 13.4 % (11.9-15.9); WHITE BLOOD COUNT 9.7 K/mm3 (4.0-10.0)
[2020-07-26 09:18] LABS: CHLORIDE 100 mmol/L (98-107); SODIUM 135 mmol/L (136-145)
[2020-07-26 09:29] LABS: ALBUMIN 3.3 g/dl (3.4-5.0); ANION GAP 6 MMOL/L (8-16); CALCIUM 8.7 mg/dL (8.5-10.1); CO2 28 mmol/L (21-32); GLUCOSE,RANDOM 78 mg/dL (74-106); MAGNESIUM 2.5 mg/dL (1.8-2.4)
[2020-07-26 09:32] LABS: CREATININE 0.9 mg/dL (0.55-1.3)
[2020-07-26 09:33] LABS: BILIRUBIN,TOTAL 1.1 mg/dL (0.2-1); PHOSPHOROUS 4.6 mg/dL (2.5-4.9); SGOT/AST 17 U/L (15-37); SGPT/ALT 97 U/L (13-61); TOT PROT 6.8 g/dl (6.4-8.2)
[2020-07-26 09:34] LABS: ALK PHOS 51 U/L (45-117)
[2020-07-26 10:11] LABS: LDH 315 U/L (87-246)
[2020-07-26] MEDS ORDERED: DEXTROSE 5%-WATER - 50 ML IVPB ONE (10:44)
[2020-07-26] MEDS ORDERED: cefTRIAXone SODIUM 1 GM VIAL ONE (10:44)
[2020-07-26] MEDS: APIXABAN 5 MG TABLET PO SCH ×2 (10:47→21:11)
[2020-07-26] MEDS: ZINC SULFATE 220 MG CAPSULE (FP) PO SCH (10:48)
[2020-07-26] MEDS: CHOLECALCIFEROL (VIT D3) 400 UNIT (10 MCG) TABLET PO SCH (10:48)
[2020-07-26] MEDS: CEFTRIAXONE 1 GM in DEXTROSE 5%-WATER - 50 ML IVPB SCH (10:48)
[2020-07-26] MEDS: FAMOTIDINE 20 MG TABLET PO SCH (10:48)
[2020-07-26] MEDS: ASCORBIC ACID 500 MG TABLET (FP) PO SCH ×2 (10:48→21:11)
[2020-07-26] MEDS: DEXAMETHASONE SOD PHOSPHATE 4 MG/1 ML VIAL IVPUSH SCH (10:51)
[2020-07-27] MEDS: BUDESONIDE 0.5 MG/2 ML INH SUSP VIAL NEB SCH ×2 (07:57→21:00)
[2020-07-27] MEDS ORDERED: cefTRIAXone SODIUM 1 GM VIAL ONE (09:15)
[2020-07-27] MEDS ORDERED: DEXTROSE 5%-WATER - 50 ML IVPB ONE (09:15)
[2020-07-27] MEDS: CEFTRIAXONE 1 GM in DEXTROSE 5%-WATER - 50 ML IVPB SCH (09:40)
[2020-07-27] MEDS: FAMOTIDINE 20 MG TABLET PO SCH (09:41)
[2020-07-27] MEDS: ZINC SULFATE 220 MG CAPSULE (FP) PO SCH (09:41)
[2020-07-27] MEDS: ASCORBIC ACID 500 MG TABLET (FP) PO SCH ×2 (09:41→21:14)
[2020-07-27] MEDS: CHOLECALCIFEROL (VIT D3) 400 UNIT (10 MCG) TABLET PO SCH (09:41)
[2020-07-27] MEDS: APIXABAN 5 MG TABLET PO SCH ×2 (09:41→21:14)
[2020-07-27] MEDS: DEXAMETHASONE SOD PHOSPHATE 4 MG/1 ML VIAL IVPUSH SCH (09:41)
[2020-07-27] MEDS ORDERED: DEXAMETHASONE SOD PHOSPHATE 4 MG/1 ML VIAL IVPUSH SCH (10:59)
[2020-07-27] MEDS: BUDESONIDE/FORMETEROL FUMARATE 80/4.5 mcg INHALER IH SCH ×2 (15:00→21:19)
[2020-07-28] MEDS: BUDESONIDE 0.5 MG/2 ML INH SUSP VIAL NEB SCH (08:05)
[2020-07-28 09:23] LABS: BASO % 0.5 % (0-2.0); EOS % 2.6 % (0-4.5); HEMATOCRIT 44.1 % (35.4-49); HEMOGLOBIN 14.9 GM/dL (11.7-16.9); LYMPH % 23.1 % (8-40); MCH 30.1 pg (25.7-33.7); MCHC 33.7 g/dl (32.0-35.9); MEAN CELL VOLUME 89.2 fl (80-96); MEAN PLT VOLUME 8.1 fl (7.5-11.1); MONO % 3.3 % (3.8-10.2); NEUT % 70.5 % (42.8-82.8); PLATELET COUNT 254 K/MM3 (134-434); RBC 4.95 M/mm3 (4.00-5.60); RDW 13.4 % (11.9-15.9); WHITE BLOOD COUNT 11.4 K/mm3 (4.0-10.0)
[2020-07-28 09:45] LABS: POTASSIUM 3.3 mmol/L (3.5-5.1)
[2020-07-28] MEDS ORDERED: cefTRIAXone SODIUM 1 GM VIAL ONE (09:53)
[2020-07-28] MEDS ORDERED: DEXTROSE 5%-WATER - 50 ML IVPB ONE (09:53)
[2020-07-28 10:20] LABS: ALBUMIN 3.2 g/dl (3.4-5.0); CALCIUM 8.7 mg/dL (8.5-10.1)
[2020-07-28 10:23] LABS: CREATININE 0.9 mg/dL (0.55-1.3)
[2020-07-28 10:24] LABS: BILIRUBIN,TOTAL 1.2 mg/dL (0.2-1)
[2020-07-28 10:26] LABS: TOT PROT 6.7 g/dl (6.4-8.2)
[2020-07-28] MEDS: FAMOTIDINE 20 MG TABLET PO SCH (10:26)
[2020-07-28] MEDS: ZINC SULFATE 220 MG CAPSULE (FP) PO SCH (10:26)
[2020-07-28] MEDS: APIXABAN 5 MG TABLET PO SCH (10:26)
[2020-07-28] MEDS: CHOLECALCIFEROL (VIT D3) 400 UNIT (10 MCG) TABLET PO SCH (10:26)
[2020-07-28] MEDS: CEFTRIAXONE 1 GM in DEXTROSE 5%-WATER - 50 ML IVPB SCH (10:26)
[2020-07-28] MEDS: BUDESONIDE/FORMETEROL FUMARATE 80/4.5 mcg INHALER IH SCH (10:26)
[2020-07-28] MEDS: ASCORBIC ACID 500 MG TABLET (FP) PO SCH (10:26)
[2020-07-28 15:16] VITALS: BP 102/65; PULSE 98; TEMP 98.5
== END 2020-07-28 18:08 | disposition home or self-care (01) | DRG 177 ==
LOC: JER 14:44 → JCOVINFU 14:44 → JERBED 19:45 → J5S 07-08 00:34 → J4W 07-10 18:52 → J6S 07-21 15:49
PROVIDERS: ADMIT Internal Medicine
PROC: XW033E5 Introduction of Remdesivir Anti-infective into Peripheral Vein, Percutaneous Approach, New Technology Group 5 (ICD-10-PCS; principal; 2020-07-08)
PROC: XW13325 Transfusion of Convalescent Plasma (Nonautologous) into Peripheral Vein, Percutaneous Approach, New Technology Group 5 (ICD-10-PCS; 2020-07-09)
PROC: XW033H5 Introduction of Tocilizumab into Peripheral Vein, Percutaneous Approach, New Technology Group 5 (ICD-10-PCS; 2020-07-11)
DX: U07.1 COVID-19 (principal); J12.82 Pneumonia due to coronavirus disease 2019; J96.01 Acute respiratory failure with hypoxia; E87.1 Hypo-osmolality and hyponatremia; R00.0 Tachycardia, unspecified; R94.31 Abnormal electrocardiogram [ECG] [EKG]; R50.9 Fever, unspecified; R19.7 Diarrhea, unspecified; K76.0 Fatty (change of) liver, not elsewhere classified
CPT/HCPCS: 36415; 36430; 71045-TC-FY; 71046-TC-FY; 71250-TC; 80048; 80053; 82308; 82550; 82553; 82728; 83605; 83615; 83735; 84100; 84484; 85025; 85027; 85379; 85610; 86140; 86480; 86769; 86850; 86900; 86901; 87040; 87804; 93005; 93010; 93306-TC; 94010; 94640; 94660; 99285-25; C9399; C9803; J0131; J3262; P9017; U0003